=== PATIENT | female | born 1975 | race Caucasian/White ===

== ENCOUNTER 2023-08-03 19:07 | Emergency (ER) | payer OTHER, SELFPAY ==
[2023-08-03 19:30] VITALS: BP 108/50; PULSE 104; RESP 20; TEMP 36.6; O2SAT 96; BMI 29.7
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
--- NOTE | 2023-08-03 19:56 | PC.NURSE ---
Sent urine up to lab via tube
[2023-08-03 19:57] VITALS: BP 108/50; PULSE 104; RESP 18; TEMP 36.6; O2SAT 96
[2023-08-06 06:37] LABS: Neisseria gonorrhoeae, NAA Negative (Negative)
[2023-08-07 10:47] LABS: Trichomonas Vaginalis, NAA Negative
== END 2023-08-03 19:57 | disposition home or self-care (01) ==
PROVIDERS: Emergency Provider Nurse Practitioner Family
DX: Z11.3 Encounter for screening for infections with a predominantly sexual mode of transmission (principal); F17.210 Nicotine dependence, cigarettes, uncomplicated
CPT/HCPCS: 87491; 87591; 87661; 99202; 99212; G0463

== ENCOUNTER 2023-08-23 11:24 | Emergency (ER) | payer OTHER, SELFPAY ==
[2023-08-23] VITALS (8 sets, daily range): BP systolic 107–144; BP diastolic 61–88; PULSE 76–114; RESP 12–22; TEMP 36.7–37.2; O2SAT 96–100; BMI 29.7
--- NOTE | 2023-08-23 11:24 | ECG_ITS ---
APPROVED REPORT Exam: Resting ECG HR:110 bpm ECG Measurements Heart Rate 110 AXES GA 126 P 37 QRSd 97 QRS 56 QT 356 T 10 QTc 421 Conclusion SINUS TACHYCARDIA NONSPECIFIC ST & T-WAVE ABNORMALITY ABNORMAL RHYTHM ECG UNCONFIRMED REPORT Electronically signed by : Justice John, 08/23/2023 15:23:45
--- NOTE | 2023-08-23 11:44 | XR_ITS ---
FINAL REPORT CLINICAL HISTORY: Precordial chest pain COMPARISON: None FINDINGS: The heart size is normal. The mediastinum is normal. The lungs are underinflated. There is no focal infiltrate or edema. There are no pleural effusions. There is no pneumothorax. There is no osseous abnormality. IMPRESSION: No acute cardiopulmonary process Reviewed, Interpreted and Dictated by Joesph Mulligan MD Transcribed by Meme Huff Authenticated and [facility]
--- NOTE | 2023-08-23 11:49 | PC.NURSE ---
DR JIMENEZ AT BS FOR PT EVAL
[2023-08-23 11:53] LABS: Chloride 109 mmol/L (98-107); Sodium 143 mmol/L (136-145)
[2023-08-23 11:54] LABS: Potassium 3.9 mmoL/L (3.5-5.1)
--- NOTE | 2023-08-23 11:54 | ED_ITS ---
Discharge Plan Disposition Patient Disposition: Home, Self-Care Prescriptions Prescriptions: No Action metformin 500 mg tablet 500 mg PO DAILY lisinopril 20 mg tablet 20 mg PO DAILY clonazepam 1 mg tablet 1 mg PO DAILY gabapentin 300 mg capsule 300 mg PO TID albuterol sulfate [Ventolin HFA] 90 mcg/actuation HFA aerosol inhaler See Rx Instructions .ROUTE .COMPLEX Rx Instructions: see rx fluticasone propionate 50 mcg/actuation spray,suspension See Rx Instructions .ROUTE .COMPLEX Rx Instructions: see rx Myrbetriq 25 mg tablet extended release 24 hr 25 mg PO DAILY Patient Comments: TAKE 1 TABLET BY MOUTH ONCE DAILY Referrals Follow up/Referrals: Thuy Dawson APRN [Primary Care Provider] - See instructions Soy Marquez MD [Staff Physician] - See instructions Clinical Impressions Clinical Impression: Palpitations, Atypical chest pain, Anxiety Stand Alone Forms Stand Alone Forms: Work/School Release Discharge ED Provider: Radha John HPI General Chief Complaint: Chest Pain Stated Complaint: Chest Pain Time Seen by Provider: 08/23/23 11:49 Mode of Arrival: Ambulatory Source of Information: Patient Limitations: No Limitations Description of Symptoms (Recalled from ER Triage Doc. by RN): pt presents to ED with c/o chest pain. pt reports chest pain began approx 1100. pt reports that she took her morning medications, ate breakfast, was sitting down on the couch and began to have chest pressure and feel like her heart was beating out of her chest. History of Present Illness HPI narrative: Patient is a 48-year-old female present today with chest discomfort. She describes it as my heart racing on my chest. States the symptoms are still ongoing started just prior to arrival. Denies any exertional symptoms diaphoresis she does states she has some mild shortness of breath associated with this no history or known diagnosis of coronary artery disease. No leg swelling prolonged immobilizations hemoptysis history of DVT or PE etc. States that she has had some significant and severe worsening of stress and anxiety in her life that she wishes not to talk about but denies any suicidal ideation etc. Related Data Home Medications Medication Instructions Recorded Confirmed albuterol sulfate 90 mcg/actuation See Rx Instructions .Route .COMPLEX 08/03/23 08/03/23 aerosol inhaler (Ventolin HFA) clonazepam 1 mg tablet 1 mg PO DAILY 08/03/23 08/03/23 fluticasone propionate 50 See Rx Instructions .Route .COMPLEX 08/03/23 08/03/23 mcg/actuation nasal spray,suspension gabapentin 300 mg capsule 300 mg PO TID 08/03/23 08/03/23 lisinopril 20 mg tablet 20 mg PO DAILY 08/03/23 08/03/23 metformin 500 mg tablet 500 mg PO DAILY 08/03/23 08/03/23 mirabegron 25 mg tablet,extended 25 mg PO DAILY 08/03/23 08/03/23 release 24 hr (Myrbetriq) Allergies Allergy/AdvReac Type Severity Reaction Status Date / Time latex Allergy Verified 08/03/23 19:50 Penicillins Allergy Anaphylaxis Verified 08/03/23 19:50 [facility] Disclaimer: The information contained in this section may have been updated after the patient was seen, as this information can be updated by other users. Social History (Updated 08/03/23 @ 19:54 by Rula Wei APRN) Smoking Status: Current every day smoker alcohol intake: current current occupational status: employed Travel in the last 8 weeks: Inside the [place] ROS Obtained: Yes All systems reviewed & no additional complaints except as documented Physical Exam General General appearance: alert and in no apparent distress Respiratory Respiratory exam: Present normal lung sounds bilaterally; Absent respiratory distress Cardiovascular Cardiovascular exam: Present regular rate and tachycardia Neurological Exam Neurological exam: Present alert and oriented X3 HEART Score HEART Score HEART Score assessment performed?: Yes History (anamnesis): Slightly suspicious ECG: Non-specific disturbance Age: 45-65 years Risk factors: 1-2 risk factors Troponin: </= normal limit HEART Score: 3 Critical Care Critical Care Time Critical Care Time: No Medical Decision Making Clif Inquiry Pt receiving controlled substance: No Vital Signs Vital Signs: 08/23/23 11:24 08/23/23 11:47 08/23/23 12:30 Temperature 99.0 F Temperature Source Oral Pulse Rate 104 H 86 Pulse Rate [Left Radial] 114 H Respiratory Rate 14 19 22 Blood Pressure 119/74 Blood Pressure [Right Arm] 133/86 Blood Pressure Mean [Right Arm] 101 02 Sat by Pulse Oximetry 99 97 97 Oxygen Delivery Method Room Air Room Air 08/23/23 13:00 08/23/23 13:30 08/23/23 14:01 Temperature Temperature Source Pulse Rate 82 76 86 Pulse Rate [Left Radial] Respiratory Rate 12 14 15 Blood Pressure 114/65 121/77 144/88 H Blood Pressure [Right Arm] Blood Pressure Mean [Right Arm] 02 Sat by Pulse Oximetry 96 99 98 Oxygen Delivery Method Room Air Room Air Room Air 08/23/23 15:00 Temperature Temperature Source Pulse Rate 84 Pulse Rate [Left Radial] Respiratory Rate 14 Blood Pressure 107/61 L Blood Pressure [Right Arm] Blood Pressure Mean [Right Arm] 02 Sat by Pulse Oximetry 98 Oxygen Delivery Method Room Air Lab Data Lab results reviewed: Yes I reviewed the patient's lab results. Labs: Lab Results 08/23/23 11:28: WBC 12.3 H, RBC 4.92, Hgb 15.8, Hct 45.7, MCV 92.8, MCH 32.0 H, MCHC 34.5, RDW 13.7, Plt Count 149, MPV 8.7, Neut % (Auto) 81.6 H, Lymph % (Auto) 13.0, Luna % (Auto) 3.8, Eos % (Auto) 0.8, Baso % (Auto) 0.8, Neut # (Auto) 10.1 H, Lymph # (Auto) 1.6, Luna # (Auto) 0.5, Eos # (Auto) 0.1, Baso # (Auto) 0.1, D-Dimer 0.32, Sodium 143, Potassium 3.9, Chloride 109 H, Carbon Dioxide 29, Anion Gap 8.9, BUN 15, Creatinine 0.80, Estimated Creat Clear 114, Estimated GFR 76, Est GFR ( Amer) 92, Glucose 138 H, Calcium 9.3, Magnesium 1.7, Total Bilirubin 0.8, AST 26, ALT 22, Alkaline Phosphatase 67, Troponin I < 0.01, Total Protein 7.0, Albumin 4.3, Globulin 2.7, Albumin/Globulin Ratio 1.6, TSH 0.60 08/23/23 14:24: Troponin I < 0.01 08/23/23 11:28 08/23/23 11:28 Response Orders (Tests/Meds): ED MEDICATIONS Generic Name Dose Route Start Last Admin Trade Name Freq PRN Reason Stop Dose Admin Sodium Chloride 10 ml 08/23/23 11:44 Sodium Chloride 0.9% 10ml Flush Syringe IV 09/22/23 11:43 NEEDED PRN Maintain IV Site Discontinued Medications Generic Name Dose Route Start Last Admin Trade Name Stephie PRN Reason Stop Dose Admin Lactated Ringer's 1,000 mls @ 999 mls/hr 08/23/23 12:00 08/23/23 12:11 Lactated Ringer's 1000 Ml Bag IV 08/23/23 13:00 999 mls/hr .Q1H1M REVA Administration ORDERS Category Date Time Status XR chest portable Stat Exams 08/23/23 11:44 Completed Complete Blood Count Auto Diff Stat Lab 08/23/23 11:28 Completed Comprehensive Metabolic Panel Stat Lab 08/23/23 11:28 Completed D-Dimer Stat Lab 08/23/23 11:28 Completed Magnesium Stat Lab 08/23/23 11:28 Completed TSH [Thyroid Stimulating Hormone] Stat Lab 08/23/23 11:28 Completed Troponin I Q3H Lab 08/23/23 14:24 Completed Troponin I Q3H Lab 08/23/23 17:45 Ordered Troponin I Stat Lab 08/23/23 11:28 Completed ECG Data Tracing #1: Attestation: I reviewed this ECG and interpreted as documented below: ECG Narrative: Ventricular rate of [address] abnormalities in inferior lateral leads but no definitive ischemic changes there is normal axis MDM Narrative Medical Decision Narrative: 48-year-old female with above history primarily describing palpitations and a tacky dysrhythmia. However she states he is still symptomatic she is on monitor and it only shows sinus tachycardia. Cannot rule out pulmonary embolism utilizing PERC criteria will obtain a D-dimer and use years criteria with a cutoff of 1.0 to further evaluate for pulmonary embolism utilizing a CT PE. Also will obtain serial troponins to rule out any myocardial injury acute coronary syndrome she will be placed in ED observation status at 11:50 AM. Overall she appears very well suspect that her symptoms may also set be secondary to significant anxiety and stress. Chest x-ray performed which I first interpreted shows no acute cardiopulmonary emergency. Troponin negative D-dimer negative. Second troponin pending care will be transitioned to Dr. Mackenzie Santiago for final evaluation after second troponin. Reassessment 3:20 PM serial troponins negative remainder of workup is unremarkable. Patient remained very stable in the emergency department will follow-up outpatient with cardiology was discharged in a stable condition peer
[2023-08-23 11:55] LABS: Basophils # 0.1 K/mm3 (0-0.2); Basophils % 0.8 % (0.1-2.0); Eosinophils # 0.1 K/mm3 (0.0-0.4); Eosinophils % 0.8 % (0.1-12.0); Hematocrit 45.7 % (37.0-47.0); Hemoglobin 15.8 g/dL (12.2-16.2); Lymphocytes # 1.6 K/mm3 (0.7-4.5); Mean Corpuscular HGB Conc 34.5 g/dL (31.8-35.4); Mean Corpuscular Volume 92.8 fl (81-99); Mean Platelet Volume 8.7 fl (7.4-10.4); Monocytes # 0.5 K/mm3 (0.1-1.0); Monocytes % 3.8 % (1.7-9.3); Neutrophils # 10.1 K/mm3 (1.8-7.8); Neutrophils % 81.6 % (37.0-80.0); Platelet Count 149 K/mm3 (142-424); Red Blood Count 4.92 M/mm3 (4.20-5.40); Red Cell Distribution Width 13.7 % (11.5-17.5); White Blood Count 12.3 K/mm3 (4.8-10.8)
[2023-08-23 11:56] LABS: Alanine Aminotransferase 22 U/L (12-78); Albumin Level 4.3 g/dl (3.5-5.0); Albumin/Globulin Ratio 1.6 (1.1-1.8); Alkaline Phosphatase 67 U/L (38-126); Anion Gap 8.9 mEq/L (5-15); Aspartate Amino Transferase 26 U/L (14-36); Bilirubin,Total 0.8 mg/dl (0.2-1.3); Blood Urea Nitrogen 15 mg/dl (7-17); Carbon Dioxide 29 mmol/L (22.0-30.0); Creatinine Clearance Estimated 114 mL/min (50-200); Estimated Glomerular Filt Rate 76 ml/min (>60); GFR (African American) 92 ML/MIN (>60); Globulin 2.7 g/dL (1.3-3.2)
[2023-08-23 11:57] LABS: Calcium 9.3 mg/dl (8.4-10.2); Glucose 138 mg/dl (74-100)
--- NOTE | 2023-08-23 11:59 | PC.NURSE ---
RAD AT BS FOR PT EVAL
[2023-08-23] MEDS: LACTATED RINGERS 1000ML 1,000 ML 999 ML IV (12:11)
[2023-08-23 12:14] LABS: D-Dimer 0.32 ug/mL (0.0-0.5)
[2023-08-23 12:17] LABS: Troponin I < 0.01 ng/ml (0.00-0.034)
[2023-08-23 12:21] LABS: Magnesium 1.7 mg/dl (1.6-2.3)
--- NOTE | 2023-08-23 13:22 | PC.NURSE ---
PT UPDATED ON POC, ASSISTED TO BR. NO FURTHER NEEDS AT THIS TIME
[2023-08-23 15:11] LABS: Troponin I < 0.01 ng/ml (0.00-0.034)
== END 2023-08-23 15:25 | disposition home or self-care (01) ==
PROVIDERS: Emergency Provider Student in an Organized Health Care Education/Training Program; PCP Nurse Practitioner Family
DX: R07.89 Other chest pain (principal); R00.2 Palpitations; F41.9 Anxiety disorder, unspecified; R00.0 Tachycardia, unspecified; F17.210 Nicotine dependence, cigarettes, uncomplicated
CPT/HCPCS: 71045; 80053; 83735; 84443; 84484; 85025; 85378; 93005; 96360; 99284

== ENCOUNTER 2023-12-04 21:24 | Emergency (ER) | payer OTHER, SELFPAY ==
[2023-12-04 21:24] VITALS: BP 150/99; PULSE 124; RESP 20; TEMP 36.8; O2SAT 96; BMI 37.5
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
--- NOTE | 2023-12-04 21:30 | ECG_ITS ---
APPROVED REPORT Exam: Resting ECG HR:126 bpm ECG Measurements Heart Rate 126 AXES MS 116 P 47 QRSd 95 QRS 53 QT 335 T -21 QTc 410 Conclusion SINUS TACHYCARDIA WITH SHORT MS INTERVAL NONSPECIFIC ST & T-WAVE ABNORMALITY ABNORMAL ECG UNCONFIRMED REPORT Electronically signed by : BRIDGETT WOO, 12/05/2023 06:47:09
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
[2023-12-04 21:41] LABS: Basophils # 0.1 K/mm3 (0-0.2); Eosinophils # 0.2 K/mm3 (0.0-0.4); Eosinophils % 1.9 % (0.1-12.0); Hematocrit 42.3 % (37.0-47.0); Hemoglobin 14.9 g/dL (12.2-16.2); Lymphocytes # 2.5 K/mm3 (0.7-4.5); Lymphocytes % 29.3 % (10-50); Mean Corpuscular HGB Conc 35.2 g/dL (31.8-35.4); Mean Corpuscular Hemoglobin 32.6 pg (27.0-31.2); Mean Corpuscular Volume 92.5 fl (81-99); Monocytes # 0.4 K/mm3 (0.1-1.0); Monocytes % 4.4 % (1.7-9.3); Neutrophils # 5.5 K/mm3 (1.8-7.8); Neutrophils % 63.5 % (37.0-80.0); Platelet Count 138 K/mm3 (142-424); Red Blood Count 4.58 M/mm3 (4.20-5.40); Red Cell Distribution Width 14.1 % (11.5-17.5); White Blood Count 8.6 K/mm3 (4.8-10.8)
[2023-12-04] MEDS: LACTATED RINGERS 1000ML 1,000 ML 999 ML IV ×2 (21:45→23:20)
[2023-12-04 21:50] LABS: Alanine Aminotransferase 19 U/L (12-78); Albumin Level 4.1 g/dl (3.5-5.0); Albumin/Globulin Ratio 1.5 (1.1-1.8); Alkaline Phosphatase 62 U/L (38-126); Anion Gap 13.2 mEq/L (5-15); Aspartate Amino Transferase 24 U/L (14-36); Bilirubin,Total 0.3 mg/dl (0.2-1.3); Blood Urea Nitrogen 14 mg/dl (7-17); Carbon Dioxide 22 mmol/L (22.0-30.0); Chloride 113 mmol/L (98-107); Estimated Glomerular Filt Rate 89 ml/min (>60); GFR (African American) 107 ML/MIN (>60); Globulin 2.8 g/dL (1.3-3.2); Glucose 163 mg/dl (74-100); Magnesium 1.7 mg/dl (1.6-2.3); Potassium 3.2 mmoL/L (3.5-5.1); Sodium 145 mmol/L (136-145); Total Protein,Serum 6.9 g/dl (6.3-8.2)
[2023-12-04 21:51] LABS: Ethyl Alcohol 133 mg/dl (0-10)
[2023-12-04 22:03] LABS: Troponin I < 0.01 ng/ml (0.00-0.034)
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
[2023-12-04 22:39] VITALS: BP 139/84; PULSE 112; O2SAT 99
[2023-12-04] MEDS: SODIUM CHLORIDE 0.9% 10ML SYR (RAD ONLY) 10 ML IV (22:41)
[2023-12-04] MEDS: IOPAMIDOL-370 (76%);100ML BOTTLE 100 ML IV (22:41)
[2023-12-04] MEDS: 0.9 % SODIUM CHLORIDE 50 ML VIAL IV (22:41)
[2023-12-04 23:00] VITALS: BP 136/87; PULSE 117; O2SAT 97
--- NOTE | 2023-12-04 23:00 | PC.NURSE ---
Contacted rad for update on images
[2023-12-04] MEDS: ACETAMINOPHEN 1,000MG/100ML VIAL 1000 MG IV (23:20)
[2023-12-04] MEDS: POTASSIUM CHLORIDE 20MEQ TAB 40 MEQ PO (23:21)
[2023-12-04 23:30] VITALS: BP 161/92; PULSE 119; O2SAT 96
[2023-12-05] VITALS: BP 148/92; PULSE 115; O2SAT 98
[2023-12-05 00:55] VITALS: BP 153/108; PULSE 120; RESP 17; TEMP 36.7; O2SAT 97
== END 2023-12-05 00:56 | disposition home or self-care (01) ==
PROVIDERS: Emergency Medicine; Emergency Provider Emergency Medicine
DX: S82.892A Other fracture of left lower leg, initial encounter for closed fracture (principal); E87.6 Hypokalemia; F10.929 Alcohol use, unspecified with intoxication, unspecified; R07.9 Chest pain, unspecified; M54.2 Cervicalgia; F17.210 Nicotine dependence, cigarettes, uncomplicated; Y04.0XXA Assault by unarmed brawl or fight, initial encounter; Y90.6 Blood alcohol level of 120-199 mg/100 ml
CPT/HCPCS: 70450; 71275; 72125; 73080; 73562; 73610; 74174; 80053; 80320; 83735; 84484; 85025; 93005; 96361; 96374; 99285; G0480; J0131; J7120; Q9967

== ENCOUNTER 2024-11-22 16:37 | Emergency (ER) | payer SELFPAY ==
[2024-11-22 16:48] VITALS: BP 149/89; PULSE 102; RESP 18; TEMP 36.7; O2SAT 98; BMI 30.7
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
--- NOTE | 2024-11-22 17:36 | XR_ITS ---
PROCEDURE INFORMATION: Exam: XR Lumbosacral Spine Exam date and time: 11/22/2024 6:13 PM Age: 49 years old Clinical indication: Low back pain; Additional info: Fall TECHNIQUE: Imaging protocol: Radiologic exam of the lumbosacral spine. Views: 2 or 3 views. COMPARISON: CT ANGIO ABDOMEN PELVIS 12/04/2023 10:16 PM FINDINGS: Tubes, catheters and devices: Surgical clips overlie the gallbladder fossa. Bones/joints: Moderate loss of intervertebral disc space with degenerative changes involving L5-S1. The vertebral bodies are maintained in height and alignment. No evidence of acute osseous abnormality. Mild loss of intervertebral disc space with degenerative changes involving L1 through L5. Soft tissues: Unremarkable. IMPRESSION: No evidence of acute osseous abnormality.
--- NOTE | 2024-11-22 17:36 | XR_ITS ---
PROCEDURE INFORMATION: Exam: XR Left Elbow Exam date and time: 11/22/2024 5:54 PM Age: 49 years old Clinical indication: Pain; Elbow; Left; Additional info: Fall TECHNIQUE: Imaging protocol: Radiologic exam of the left elbow. Views: 3 or more views. COMPARISON: CR XR ELBOW LT MIN 3V 12/04/2023 10:21 PM FINDINGS: Bones/joints: Cortical irregularity at the lateral margin of the radial head suggest nondisplaced fracture. Soft tissues: Moderate soft tissue swelling. IMPRESSION: Cortical irregularity at the lateral margin of the radial head suggest nondisplaced fracture.
--- NOTE | 2024-11-22 17:37 | ED_ITS ---
<Statement entered by Michelle Gross DO - 11/22/24 19:51> I was consulted by the ANSON, and we discussed the complexity of problems being addressed. I approve the treatment and management plan for this patient's care in the emergency department, thus performing a substantial portion of the medical decision making. Michelle Gross DO Discharge Plan Disposition Patient Disposition: Home, Self-Care Condition: Good Prescriptions Prescriptions: No Action metformin 500 mg tablet 500 mg PO DAILY lisinopril 20 mg tablet 20 mg PO DAILY clonazepam 1 mg tablet 1 mg PO DAILY gabapentin 300 mg capsule 300 mg PO TID albuterol sulfate [Ventolin HFA] 90 mcg/actuation HFA aerosol inhaler See Rx Instructions .ROUTE .COMPLEX Rx Instructions: see rx fluticasone propionate 50 mcg/actuation spray,suspension See Rx Instructions .ROUTE .COMPLEX Rx Instructions: see rx Myrbetriq 25 mg tablet extended release 24 hr 25 mg PO DAILY Patient Comments: TAKE 1 TABLET BY MOUTH ONCE DAILY Referrals Follow up/Referrals: Norberto Lopez MD [Primary Care Provider, Medical] - See instructions Activity Restrictions/Add. Instructions Additional Instructions/Restrictions: Follow-up with PCP [facility] Tylenol Motrin as needed Splint Clinical Impressions Clinical Impression: Abrasion Right wrist sprain Qualifiers: Encounter type: initial encounter Wrist sprain location: other location Q ualified Code(s): S63.591A - Other specified sprain of right wrist, initial encounter Low back pain Qualifiers: Chronicity: acute Back pain laterality: midline Sciatica presence: without sciatica Qualified Code(s): M54.50 - Low back pain, unspecified Stand Alone Forms Stand Alone Forms: Work/School Release Instructions Patient Instructions: DI for Wrist Sprain, How to Prevent Falls Print Language Print Language: Japanese Discharge ED Provider: Michelle Gross General Adult HPI <Chayito Campuzano ([facility]), STENOTYPE OPERATOR - Last Filed: 11/22/24 18:55> General Chief complaint: Fall Stated complaint: AO 11-22 back and both arms,fell Time Seen by Provider: 11/22/24 17:37 Mode of Arrival: Ambulatory Source of Information: Patient Description of Symptoms (Recalled from ER Triage Doc. by RN): Pt presents for evaluation after having a fall at work. Pt states she was stocking and tripped over the peg hook. Pt is having left arm pain that has swelling, bruising and abrasion. Pt is having lower back pain. Pt has a deformity to her right hand and has a hx of fratcture to her right arm. Pt denies LOC/BT History of Present Illness HPI narrative: 49-year-old female presents status post fall while at work. Patient states she was retaining into a cabinet and tripped after her pants got snagged on something resulting in a fall when she tried to catch herself landing on her buttocks and trying to catch herself with her head hands. Patient states now her right hand/wrist is painful. Abrasion to the left elbow and low back pain. Patient states she did not hit her head. Denies neck or upper back pain Related Data Home Medications ?Medication ?Instructions ?Recorded ?Confirmed albuterol sulfate 90 mcg/actuation See Rx Instructions .Route .COMPLEX 08/03/23 10/17/24 aerosol inhaler (Ventolin HFA) clonazepam 1 mg tablet 1 mg PO DAILY 08/03/2310/17 fluticasone propionate 50 See Rx Instructions .Route . COMPLEX 08/03/23 10/17/24 mcg/actuation nasal spray,suspension gabapentin 300 mg capsule 300 mg PO TID 08/03/2310/17 lisinopril 20 mg tablet 20 mg PO DAILY 08/03/2310/01 metformin 500 mg tablet 500 mg PO DAILY 08/03/23 mirabegron 25 mg tablet,extended 25 mg PO DAILY 10/17/24 release 24 hr (Myrbetriq) Allergies Allergy/AdvReac Type Severity Reaction Status Date / Time latex Allergy Verified 10/17/24 13:16 Penicillins Allergy Anaphylaxis Verified 10/17/24 13:16 [facility] <Chayito Campuzano ([facility]), STENOTYPE OPERATOR - Last Filed: 11/22/24 18:55> [facility] Disclaimer: The information contained in this section may have been updated after the patient was seen, as this information can be updated by other users. Medical History , STENOTYPE OPERATOR) dilated cardiomyopathy Surgical History , STENOTYPE OPERATOR) History of cardiac catheterization H/O: hysterectomy Social History , LORA) Smoking Status: Current every day smoker alcohol intake: current current occupational status: employed Travel in the last 8 weeks?: Inside the [place] Have you lived/traveled outside [place] in past 30 days?: No Contact w/someone who lives/traveled outside [place] past 30 days?: No Exposure to someone with infectious disease in past 14 days?: No Do you have a fever (greater than 100.4 F or 38 C)?: No Have you tested positive for COVID-19?: No Exposed to someone with COVID-19 in past 14 days?: No Do you have a sore throat?: No Do you have a cough?: No Do you have any weakness?: No Do you have any diarrhea?: No Are you experiencing any unusual bleeding?: No Do you have any muscle aches/pain?: No Do you have any abdominal pain?: No Are you experiencing loss of taste or smell?: No Other Medical History Have you received the Flu Vaccine for this season: No <[facility] STENOTYPE OPERATOR - Last Filed: 11/22/24 18:55> ROS Obtained: Yes All systems reviewed & no additional complaints except as documented Constitutional Constitutional: Reports system reviewed and no additional complaints, except as documented and Reports as per HPI ENT Ears, Nose, Mouth, and Throat: Reports system reviewed and no additional complaints, except as documented Musculoskeletal Musculoskeletal: Reports system reviewed and no additional complaints, except as documented, Reports as per HPI, Reports arthralgias, Reports back pain, Reports joint swelling, Reports limited range of motion and Reports other Physical Exam <[facility] STENOTYPE OPERATOR - Last Filed: 11/22/24 18:55> General General appearance: alert and in no apparent distress ENT ENT exam: Present normal exam Neck Neck exam: Present normal inspection, full ROM and trachea midline; Absent tenderness Chest Chest inspection: Present normal inspection and symmetric chest wall rise; Absent tenderness Respiratory Respiratory exam: Present normal lung sounds bilaterally Cardiovascular Cardiovascular exam: Present regular rate and normal rhythm Abdominal Exam Abdominal exam: Present soft and normal bowel sounds; Absent distention or tenderness Expanded Upper Extremity Exam Right: Forearm/Wrist exam: Present tenderness, swelling and abrasion L/R Arms Top View: 2 1. Slight deformity 2. Abrasion and bruise Neurological Exam Neurological exam: Present alert and oriented X3 Skin Skin exam: Present warm Medical Decision Making <Tatyanalylymatilda Valderramamaryam ([facility]), STENOTYPE OPERATOR - Last Filed: 11/22/24 18:55> Medical Records Medical records reviewed: Yes I reviewed the patient's medical records. Screening: Per USPSTF and CDC recommendations, given the prevalence of disease in our region, it is our hospital?s policy to screen for HIV and viral Hepatitis for all patients aged 18 and over and those with ongoing risk factors. Clif Inquiry Pt receiving controlled substance: No Vital Signs: 11/22/24 16:48 11/22/24 19:01 Temperature 98.1 F 97.9 F Temperature Source Temporal Artery Scan Temporal Artery Scan Pulse Rate 78 Pulse Rate [Right] 102 H Respiratory Rate 18 18 Blood Pressure 128/78 Blood Pressure [Right Arm] 149/89 H Blood Pressure Mean [Right Arm] 109 Blood Pressure Source [Right Arm] Automatic Cuff Blood Pressure Position [Right Arm] Sitting 02 Sat by Pulse Oximetry 98 Oxygen Delivery Method Room Air Room Air Lab Data Lab results reviewed: Yes I reviewed the patient's lab results. Orders (Tests/Meds): ORDERS Category Date Time Status Elbow XR left mininum 3 views [XR elbow LT min 3V] Stat Exams 11/22/24 17:36 Completed Hand XR right minimum 3 views [XR hand RT min 3V] Stat Exams 11/22/24 16:55 Completed Lumbar spine XR 2-3 views [XR lumbar spine 2-3V] Stat Exams 11/22/24 17:36 Completed Wrist XR right minimum 3 views [XR wrist RT min 3V] Exams 11/22/24 16:55 Completed Stat XR forearm RT 2V Stat Exams 11/22/24 16:55 Completed Medical Decision Narrative: In summary patient is a 49-year-old female who presents to the emergency department for evaluation of right wrist, left arm and low back pain status post fall at work. Patient is hemodynamically stable upon arrival, afebrile. Right wrist with deformity and abrasion to the left arm/elbow. Differential diagnosis includes fracture, strain, contusion. Initial workup will be conducted with x- rays. Initial workup reviewed by me x-rays unremarkable no fracture seen. Upon repeat evaluation patient standing in the room talking with staff. Given this patient appropriate discharge at this time disability paperwork filled out. Patient will need to follow-up with PCP <Michelle Gross DO - Last Filed: 11/22/24 19:53> Vital Signs: 11/22/24 16:48 11/22/24 19:01 Temperature 98.1 F 97.9 F Temperature Source Temporal Artery Scan Temporal Artery Scan Pulse Rate 78 Pulse Rate [Right] 102 H Respiratory Rate 18 18 Blood Pressure 128/78 Blood Pressure [Right Arm] 149/89 H Blood Pressure Mean [Right Arm] 109 Blood Pressure Source [Right Arm] Automatic Cuff Blood Pressure Position [Right Arm] Sitting 02 Sat by Pulse Oximetry 98 Oxygen Delivery Method Room Air Room Air Orders (Tests/Meds): ORDERS Category Date Time Status Elbow XR left mininum 3 views [XR elbow LT min 3V] Stat Exams 11/22/24 17:36 Completed Hand XR right minimum 3 views [XR hand RT min 3V] Stat Exams 11/22/24 16:55 Completed Lumbar spine XR 2-3 views [XR lumbar spine 2-3V] Stat Exams 11/22/24 17:36 Completed Wrist XR right minimum 3 views [XR wrist RT min 3V] Exams 11/22/24 16:55 Completed Stat XR forearm RT 2V Stat Exams 11/22/24 16:55 Completed Medical Decision Narrative: In summary patient is a 49-year-old female who presents to the emergency department for evaluation of right wrist, left arm and low back pain status post fall at work. Patient is hemodynamically stable upon arrival, afebrile. Right wrist with deformity and abrasion to the left arm/elbow. Differential diagnosis includes fracture, strain, contusion, dislocation. Initial workup will be conducted with x-rays. Initial workup reviewed by hi x-rays unremarkable no fracture seen. Upon repeat evaluation patient standing in the room talking with staff. Given this patient appropriate discharge at this time disability paperwork filled out. Patient will need to follow-up with PCP Michelle Gross DO X-rays were reviewed and interpreted by myself which showed no acute fractures, patient was discharged prior to final x-rays being read by radiology. Patient was sent in a soft splint. Patient had no snuffbox tenderness in the hand, no tenderness at the base of the fifth metatarsal. Patient was advised to use Tylenol and ibuprofen. Patient was discharged in stable condition. Patient is not on any blood thinners, patient did not hit her head, did not lose consciousness, patient has no other acute injuries. X-ray of the lumbar spine was reviewed and interpreted by myself and showed no acute fractures. Critical Care <Chayito Campuzano ([facility]), STENOTYPE OPERATOR - Last Filed: 11/22/24 18:55> Critical Care Time Critical Care Time: No
--- NOTE | 2024-11-22 18:18 | PC.NURSE ---
Pt returns from x-ray
[2024-11-22 19:01] VITALS: BP 128/78; PULSE 78; RESP 18; TEMP 36.6; O2SAT 98
--- NOTE | 2024-11-23 11:19 | PC.NURSE ---
I spoke with Daniella about the pts restrictions.
== END 2024-11-22 19:15 | disposition home or self-care (01) ==
PROVIDERS: Emergency Provider Student in an Organized Health Care Education/Training Program; PCP Family Medicine
DX: M54.50 Low back pain, unspecified (principal); S50.312A Abrasion of left elbow, initial encounter; S63.591A Other specified sprain of right wrist, initial encounter; W01.198A Fall on same level from slipping, tripping and stumbling with subsequent striking against other object, initial encounter
CPT/HCPCS: 72100; 73080; 73090; 73110; 73130; 99285